=== PATIENT | female | born 1980 | race Caucasian/White ===

== ENCOUNTER 2024-03-19 10:17 | Emergency (ER) | payer OTHER ==
[2024-03-19 11:28] LABS: Absolute Lymphocytes (CBC) 1.2 K/uL (0.7-4.9); Absolute Monocytes 0.5 K/uL (0.1-1.3); Absolute Neutrophil 1.2 K/uL (1.8-8.0); Basophils % 0.9 % (0-1.3); Eosinophils % 1.6 % (0-4.4); Hematocrit 16.1 % (36.0-45.0); Lymphocytes % 39.6 % (15.3-44.8); MCH 31.4 pg (27.0-35.0); MCHC 32.4 g/dL (32.0-36.0); MCV 96.9 fL (80-100); Monocytes % 16.5 % (3.3-12.3); Neutrophils % 41.4 % (41.7-73.7); Nucleated Red Blood Cells % 0.1 % (0-0); Platelets 107 thou/uL (152-406); RBC Red Blood Cell Count 1.66 M/uL (3.86-4.86); Red Cell Distribution Width 16.2 % (12.1-15.2)
[2024-03-19 11:30] LABS: Hemoglobin 5.2 g/dL (12.0-15.0)
[2024-03-19 11:46] LABS: Albumin 2.9 g/dL (3.4-5.0); Albumin/Globulin Ratio 1.1 (1.1-1.8); Anion Gap 8.6 mEq/L (5.0-15.0); Bilirubin Total 0.9 mg/dL (0.2-1.0); Globulin 2.7 g/dL (2.3-3.5); Protein, Total 5.6 g/dL (6.4-8.2)
[2024-03-19 11:49] LABS: Potassium 2.6 mEq/L (3.5-5.1)
[2024-03-19 12:57] LABS: Anisocytosis 2+; Blood Morphology Comment NOTED (NOT SEEN); Platelet Estimate ADEQ; White Blood Cell Scan OK (OK)
[2024-03-19 12:58] LABS: Basophilic Stippling 1+; Hypochromasia 1+; Microcytosis 1+
[2024-03-19] MEDS ORDERED: NA CHLORIDE 0.9% 250 ML ONE ×2 (14:00→17:53)
[2024-03-19 20:49] LABS: Hematocrit 25.5 % (36.0-45.0); Hemoglobin 8.4 g/dL (12.0-15.0); MCHC 33.1 g/dL (32.0-36.0); MCV 93.7 fL (80-100); MPV 7.9 fL (7.6-11.3); Platelets 76 thou/uL (152-406); RBC Red Blood Cell Count 2.72 M/uL (3.86-4.86)
--- NOTE | 2024-03-19 21:00 | EDPHYS ---
Physician Documentation [facility] Name: Gary Justin Age: 43 yrs Sex: Female : 1980 Arrival Date: 03/19/2024 Time: 10:17 Bed 8 Private MD: ED Physician Wilman Aguayo HPI: 03/19 20:57 This 43 yrs old Female presents to ER via Ambulatory with complaints of Abnormal Lab bo1 Results. 21:01 Pt had blood work done and told she had anemia yesterday by Daphne Carter and told to bo1 go to the ER for blood transfusion. Onset: The symptoms/episode began/occurred gradually, Pt had a normal CBC based on her lab plot in September 2023. The decline seemed precipitous with dark stools for the past 3-4 weeks. Severity of symptoms: At their worst the symptoms were mild. Dark stools for the past month. 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 - Infectious Disease History:: Denies. - Social history:: Smoking status: Patient denies any tobacco usage or history of. ROS: 21:03 Constitutional: Negative for fever, chills, and weight loss bo1 21:03 Cardiovascular: Negative for chest pain, 21:03 Respiratory: Negative for cough, shortness of breath, 21:03 Abdomen/GI: Negative for abdominal pain, nausea and vomiting, black/tarry stool, 21:03 MS/extremity: Negative for acute changes, 21:03 Skin: Negative for rash, 21:03 Neuro: Negative for altered mental status, dizziness, 21:03 All other systems are negative, Exam: 21:04 Constitutional: This is a well developed, well nourished patient who is awake, alert, bo1 and in no acute distress. 21:04 Constitutional: The patient appears alert, awake, comfortable, non-toxic, 21:04 Eyes: Conjunctiva: pale, 21:04 Neck: External neck: is normal, no acute changes, 21:04 Cardiovascular: Rate: normal, Rhythm: regular, Pulses: no pulse deficits are appreciated, 21:04 Respiratory: the patient does not display signs of respiratory distress, Respirations: normal, Breath sounds: are clear throughout, 21:04 Abdomen/GI: Palpation: abdomen is soft and non-tender, rebound tenderness, is not appreciated, involuntary guarding, is not appreciated, 21:04 Skin: no rash present. 21:04 Neuro: Orientation: is normal, appropriate for stated age, Mentation: is normal, appropriate for stated age, Memory: is normal, appropriate for stated age, Vital Signs: 10:27 BP 123 / 81; Pulse 87; Resp 16; Temp 97; Pulse Ox 100% on R/A; ko1 14:02 BP 107 / 60; Pulse 84; Resp 17; Temp 98.5(O); Pulse Ox 99% ; rs5 14:05 BP 106 / 58; Pulse 82; Resp 16; Temp 98.6(O); Pulse Ox 100% on R/A; rs5 14:15 BP 108 / 54; Pulse 72; Resp 17; Temp 98.5(O); Pulse Ox 99% ; rs5 17:55 BP 109 / 63; Pulse 75; Resp 17; Temp 98.4; Pulse Ox 99% ; rs5 18:05 BP 107 / 66; Pulse 74; Resp 17; Temp 98.4; Pulse Ox 100% ; rs5 18:10 BP 106 / 59; Pulse 77; Resp 16; Temp 98.3; Pulse Ox 99% ; rs5 18:15 BP 108 / 69; Pulse 77; Resp 16; Temp 98.4; Pulse Ox 100% ; rs5 18:24 BP 110 / 64; Pulse 76; Resp 17; Temp 98.3; Pulse Ox 100% ; rs5 19:00 BP 121 / 74; Pulse 76; Resp 16; Temp 98.3; Pulse Ox 96% on R/A; ay 21:14 BP 124 / 87; Pulse 70; Resp 18 S; Pulse Ox 100% on R/A; ay Julia Coma Score: 19:17 Eye Response: spontaneous(4). Motor Response: obeys commands(6). Verbal Response: ay oriented(5). Total: 15. MDM: 10:43 Medical Screening Exam initiated bo1 20:57 Differential Diagnosis Anemia from chronic blood loss. Data reviewed: vital signs, lab bo1 test result(s). ED course: Pt has been transfused two units with hgb > 8. 03/19 11:00 Order name: Type And Screen bo1 03/19 10:59 Order name: CBC with Diff; Complete Time: 20:56 bo1 03/19 10:59 Order name: CMP; Complete Time: 20:56 bo 03/19 12:53 Order name: Packed RBC Leukored EDKS 03/19 12:58 Order name: CBC Smear Scan; Complete Time: 20:56 EDMS 03/19 13:21 Order name: ABO/RH no charge; Complete Time: 20:56 EDKS 03/19 16:46 Order name: Packed RBCs (Additional Unit) EDKS 03/19 20:33 Order name: CBC w/o diff; Complete Time: 20:56 bo1 03/19 10:59 Order name: IV Saline Lock; Complete Time: 12:13 bo 03/19 10:59 Order name: Labs collected and sent; Complete Time: 12:13 bo 03/19 11:16 Order name: Transfer - Initiate; Complete Time: 14:53 bo 03/19 11:16 Order name: Transfuse; Complete Time: 14:53 bo 03/19 11:27 Order name: Labs - recollect needed: TS (correct date); Complete Time: 12:58 bc6 Administered Medications: No medications were administered Disposition Summary: 03/19/24 20:59 Discharge Ordered Notes: Location: Home bo1 Problem: new bo1 Symptoms: have improved bo1 Condition: Stable bo1 Diagnosis - Anemia, unspecified bo1 Followup: bo1 - With: Private Physician - When: Upon discharge from the Emergency Department - Reason: Recheck today's complaints, Continuance of care Discharge Instructions: - Discharge Summary Sheet bo1 - Anemia bo1 - Blood Transfusion, Adult bo1 Forms: - Medication Reconciliation Form bo1 - Antibiotic Education bo1 - Prescription Opioid Use bo1 - Patient Portal Instructions bo1 - Leadership Thank You Letter bo1 Signatures: Dispatcher [employer] EDConnie De La Cruz RN RN ko1 Floresita Clark bc6 Wilman Aguayo MD MD bo1 Corrections: (The following items were deleted from the chart) 11:00 11:00 CBC+H.LAB.BRZ ordered. EDMS EDMS 11:00 11:00 COMPREHENSIVE METABOLIC PANEL+C.LAB.BRZ ordered. EDMS EDMS 11:00 11:00 TYPE AND SCREEN+BB.LAB.BRZ ordered. EDMS EDMS 12: 11:17 PACKED RBC LEUKORED+BB.LAB.BRZ ordered. EDMS EDMS 12:51 11:19 ABO/RH typing ordered. EDMS EDMS 12: 11:19 Antibody Screen ordered. EDMS EDMS
--- NOTE | 2024-03-19 21:00 | ER ---
Nurse's Notes [facility] Name: Gary Justin Age: 43 yrs Sex: Female : 1980 Arrival Date: 03/19/2024 Time: 10:17 Bed 8 Private MD: Diagnosis: Anemia, unspecified Presentation: 03/19 10:27 Chief complaint: Patient states: had labs drawn yesterday and received a call this ko1 morning that hgb was low and she may need a blood transfusion. Coronavirus screen: At this time, the client does not indicate any symptoms associated with coronavirus-19. Ebola Screen: No symptoms or risks identified at this time. Initial Sepsis Screen: Does the patient meet any 2 criteria? No. Patient's initial sepsis screen is negative. Does the patient have a suspected source of infection? No. Patient's initial sepsis screen is negative. Risk Assessment: Do you want to hurt yourself or someone else? Patient reports no desire to harm self or others. Onset of symptoms is unknown. 10:27 Method Of Arrival: Ambulatory ko1 10:27 Acuity: BARBARA 3 ko1 Triage Assessment: 10:34 General: Appears in no apparent distress. Behavior is calm, cooperative, appropriate ko1 for age. Pain: Denies pain. 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 - Infectious Disease History:: Denies. - Social history:: Smoking status: Patient denies any tobacco usage or history of. Screenin:40 [facility] ED Fall Risk Assessment (Adult) History of falling in the last 3 months, rs5 including since admission No falls in past 3 months (0 pts) Confusion or Disorientation No (0 pts) Intoxicated or Sedated No (0 pts) Impaired Gait No (0 pts) Mobility Assist Device Used No (0 pt) Altered Elimination No (0 pt) Score/Fall Risk Level 0 - 2 = Low Risk Oriented to surroundings, Maintained a safe environment. Abuse screen: Denies threats or abuse. Nutritional screening: No deficits noted. Tuberculosis screening: No symptoms or risk factors identified. 19:17 [facility] ED Fall Risk Assessment (Adult) History of falling in the last 3 months, ay including since admission No falls in past 3 months (0 pts) Confusion or Disorientation No (0 pts) Intoxicated or Sedated No (0 pts) Impaired Gait No (0 pts) Mobility Assist Device Used No (0 pt) Altered Elimination No (0 pt) Score/Fall Risk Level 0 - 2 = Low Risk Oriented to surroundings, Maintained a safe environment. Abuse screen: Denies threats or abuse. Nutritional screening: No deficits noted. Tuberculosis screening: No symptoms or risk factors identified. Assessment: 10:40 General: Appears in no apparent distress. comfortable, Behavior is calm, cooperative. rs5 Pain: Denies pain. Neuro: Level of Consciousness is awake, alert, obeys commands, Oriented to person, place, time, situation, Reports generalized weakness . Cardiovascular: Patient's skin is warm and dry. Respiratory: Airway is patent Respiratory effort is even, unlabored, Respiratory pattern is regular, symmetrical. GI: Abdomen is round non-distended, Abd is soft and non tender X 4 quads. : No signs and/or symptoms were reported regarding the genitourinary system. EENT: No signs and/or symptoms were reported regarding the EENT system. Derm: Skin is intact, Skin is pink, warm \\T\\ dry. Musculoskeletal: Range of motion: intact in all extremities. 11:55 Reassessment: Patient and/or family updated on plan of care and expected duration. Pain rs5 level reassessed. Patient is alert, oriented x 3, equal unlabored respirations, skin warm/dry/pink. 13:11 Reassessment: Patient and/or family updated on plan of care and expected duration. Pain rs5 level reassessed. Patient is alert, oriented x 3, equal unlabored respirations, skin warm/dry/pink. 14:07 Reassessment: Patient and/or family updated on plan of care and expected duration. Pain rs5 level reassessed. Patient is alert, oriented x 3, equal unlabored respirations, skin warm/dry/pink. 15:10 Reassessment: Patient and/or family updated on plan of care and expected duration. Pain rs5 level reassessed. Patient is alert, oriented x 3, equal unlabored respirations, skin warm/dry/pink. To bedside for blood transfusion, blood started \\T\\1405, remained with pt for first 15 min, rate started \\T\\50 ml/hr, no adverse reaction noted. Rate increased to 150 ml/hr. 16:32 Reassessment: Patient and/or family updated on plan of care and expected duration. Pain rs5 level reassessed. Patient is alert, oriented x 3, equal unlabored respirations, skin warm/dry/pink. 16:40 Reassessment: blood transfusion unit #1 completed \\T\\1637, no adverse reaction noted, IV rs5 flushed with 10 cc. Provider notified. 16:50 Reassessment: Patient and/or family updated on plan of care and expected duration. Pain rs5 level reassessed. Patient is alert, oriented x 3, equal unlabored respirations, skin warm/dry/pink. Blood banked called to request second unit, blood bank stated second unit will be ready in 30 min, provider notified. 17:15 Reassessment: Blood bank unit called to request second unit, blood bank stated "blood rs5 will be ready soon" provider notified . 17:40 Reassessment: blood slip form sent through tubing by blood bank, slip signed by ks and rs5 handed to [facility] for blood unit pickup . 18:21 Reassessment: to bedside for transfusion, rate started at 50 ml/hr, remained with rs5 patient for first 15 min, no adverse reaction noted, rate increased to 175 ml/hr no adverse reaction noted, see paper charting for more information. 19:17 General: Appears in no apparent distress. comfortable, Behavior is calm, cooperative. ay Pain: Denies pain. Neuro: Level of Consciousness is awake, alert, obeys commands, Oriented to person, place, time, situation, Speech is normal. Cardiovascular: Capillary refill < 3 seconds Patient's skin is warm and dry. Respiratory: Airway is patent Respiratory effort is even, unlabored, Respiratory pattern is regular, symmetrical. GI: Abdomen is flat, non-distended. : No signs and/or symptoms were reported regarding the genitourinary system. EENT: No signs and/or symptoms were reported regarding the EENT system. Derm: Skin is intact. Musculoskeletal: Range of motion: intact in all extremities. 19:21 General: pt alert and oriented . No form of distress noted. Last unit of blood infusing.ay 21:14 Reassessment: Patient appears in no apparent distress at this time. ay Vital Signs: 10:27 BP 123 / 81; Pulse 87; Resp 16; Temp 97; Pulse Ox 100% on R/A; ko1 14:02 BP 107 / 60; Pulse 84; Resp 17; Temp 98.5(O); Pulse Ox 99% ; rs5 14:05 BP 106 / 58; Pulse 82; Resp 16; Temp 98.6(O); Pulse Ox 100% on R/A; rs5 14:15 BP 108 / 54; Pulse 72; Resp 17; Temp 98.5(O); Pulse Ox 99% ; rs5 17:55 BP 109 / 63; Pulse 75; Resp 17; Temp 98.4; Pulse Ox 99% ; rs5 18:05 BP 107 / 66; Pulse 74; Resp 17; Temp 98.4; Pulse Ox 100% ; rs5 18:10 BP 106 / 59; Pulse 77; Resp 16; Temp 98.3; Pulse Ox 99% ; rs5 18:15 BP 108 / 69; Pulse 77; Resp 16; Temp 98.4; Pulse Ox 100% ; rs5 18:24 BP 110 / 64; Pulse 76; Resp 17; Temp 98.3; Pulse Ox 100% ; rs5 19:00 BP 121 / 74; Pulse 76; Resp 16; Temp 98.3; Pulse Ox 96% on R/A; ay 21:14 BP 124 / 87; Pulse 70; Resp 18 S; Pulse Ox 100% on R/A; ay Julia Coma Score: 19:17 Eye Response: spontaneous(4). Motor Response: obeys commands(6). Verbal Response: ay oriented(5). Total: 15. ED Course: 10:23 Patient arrived in ED. ra3 10:30 Wilman Aguayo MD is Attending Physician. bo1 10:32 Triage completed. ko1 10:34 Arm band placed on left wrist. Patient placed in an exam room, on a stretcher, on pulse ko1 oximetry, Patient notified of wait time. 10:40 Patient has correct armband on for positive identification. Placed in gown. Bed in low rs5 position. Call light in reach. Side rails up X2. 10:40 No provider procedures requiring assistance completed. rs5 11:11 Nick Holland, RN is Primary Nurse. rs5 11:55 Notified ED physician of a critical lab result(s). potassium 2.9. jl7 20:46 CBC w/o diff Sent. ay 21:14 Provided Education on: Blood Transfusion. ay 21:14 IV discontinued, intact, bleeding controlled, No redness/swelling at site. Pressure ay dressing applied. Administered Medications: No medications were administered Medication: 15:09 VIS not applicable for this client. rs5 20:17 Blood products: PRBCs 2nd unit completed. No any distress noted. ay Outcome: 20:59 Discharge ordered by . bo1 21:14 Discharged to home ambulatory, ay 21:14 Condition: stable 21:14 Discharge instructions given to patient, Instructed on discharge instructions, follow up and referral plans. Demonstrated understanding of instructions, follow-up care, 21:16 Patient left the ED. ay Signatures: Matt Cardenas RN RN jl7 Connie Du RN RN ko1 Nick Holland, RN RN rs5 Cristina Dai ra3 Wilman Aguayo MD MD bo1 Hina Quarles RN RN ay Corrections: (The following items were deleted from the chart) 18:20 17:10 Reassessment: Blood banked called to request second unit, blood bank stated rs5 second unit will be ready in 30 min, provider notified. rs5 18:21 18:20 Reassessment: Blood bank unit called to request second unit, blood bank stated rs5 "blood will be ready soon" provider notified . rs5
[2024-03-20 04:46] VITALS: TEMP 98.3
[2024-03-20 04:50] VITALS: BP 124/87; O2SAT 100
== END 2024-03-19 21:16 | disposition home or self-care (01) ==
LOC: ER 10:17
DX: D64.9 Anemia, unspecified (principal)
CPT/HCPCS: 85025; 36415; 86900; 86850; 86901; 86920 ×2; 85027; 80053; 36430; 99284; P9016 ×2; J7050 ×2